=== PATIENT | female | born 1955 | race Caucasian/White ===

== ENCOUNTER 2017-12-29 08:51 | Emergency (ER) | payer OTHER ==
[2017-12-29 08:55] VITALS: BMI 28.6
--- NOTE | 2017-12-29 08:55 | PDOC ---
History of Present Illness - General Chief Complaint: Cold Symptoms Stated Complaint: COUGH Time Seen by Provider: 12/29/17 08:54 History Source: Patient (Patient arrived here complaining of cough, sinus congestion) Exam Limitations: No Limitations - History of Present Illness Timing/Duration: unsure, 24 hours, constant Severity: mild Modifying Factors: improves with: medication Associated Symptoms: reports: denies symptoms Past History - Travel Traveled outside of the country in the last 30 days: No Close contact w/someone who was outside of country & ill: No - Past Medical History Allergies/Adverse Reactions: Allergies Allergy/AdvReac Type Severity Reaction Status Date / Time pineapple Allergy Hives Verified 12/29/17 08:51 Home Medications: Ambulatory Orders Bupropion HCl [Wellbutrin Xl] 300 mg PO DAILY 12/29/17 Cetirizine HCl [Zyrtec -] 10 mg PO DAILY #10 tablet 12/29/17 Guaifenesin [Robitussin] 100 mg PO Q6H #14 ud 12/29/17 Levothyroxine [Synthroid -] 100 mcg PO DAILY 12/29/17 - Reproductive History Is Patient Now?: No - Suicide/Smoking/Psychosocial Hx Smoking Status: Yes Smoking History: Current every day smoker Years of Tobacco Use: 39 Have you smoked in the past 12 months: Yes Number of Cigarettes Smoked Daily: 20 Information on smoking cessation initiated: Yes Drug/Substance Use Hx: No Review of Systems - Review of Systems Able to Perform ROS?: Yes Is the patient limited Green[place]ic proficient: Yes Constitutional: Yes: Symptoms Reported, Fever, Malaise HEENTM: Yes: See HPI, Nose Congestion Respiratory: Yes: Cough Cardiac (ROS): No: Symptoms Reported, See HPI, Chest Pain, Edema, Irregular Heart Rate, Lightheadedness, Palpitations, Syncope, Chest Tightness, Other ABD/GI: No: Symptoms Reported, See HPI, Abdominal Distended, Abd. Pain w/ defecation, Blood Streaked Bowels, Constipated, Diarrhea, Difficulty Swallowing , Nausea, Poor Appetite, Poor Fluid Intake, Rectal Bleeding, Vomiting, Indigestion, Abdominal cramping, Tarry Stools, Other All Other Systems: Reviewed and Negative *Physical Exam - Physical Exam General Appearance: Yes: Nourished, Appropriately Dressed, Mild Distress HEENT: positive: MARY, Pharyngeal Erythema Neck: positive: Supple Respiratory/Chest: positive: Lungs Clear Cardiovascular: positive: Regular Rate Lymphatic: positive: Adenopathy Musculoskeletal: positive: Normal Inspection Extremity: positive: Normal Capillary Refill Integumentary: positive: Normal Color, Dry Neurologic: positive: Fully Oriented, Alert, Normal Mood/Affect Medical Decision Making - Medical Decision Making Throat neg for strep Xrays = negative by me 12/29/17 18:37 *DC/Admit/Observation/Transfer Diagnosis at time of Disposition: Bronchitis, Smoker URI (upper respiratory infection) Qualifiers: URI type: unspecified viral URI Qualified Code(s): J06.9 - Acute upper respiratory infection, unspecified - Discharge Dispostion Disposition: HOME Condition at time of disposition: Stable Decision to Admit order: No - Prescriptions Prescriptions: Cetirizine HCl [Zyrtec -] 10 mg PO DAILY #10 tablet Guaifenesin [Robitussin] 100 mg PO Q6H #14 ud - Referrals Referrals: Sharita Funez MD [Primary Care Provider] - - Patient Instructions Printed Discharge Instructions: DI for Viral Upper Respiratory Infection -- Adult Additional Instructions: Fluids, rest, - Post Discharge Activity Forms/Work/School Notes: Back to Work
[2017-12-29 10:14] VITALS: BP 156/89; PULSE 79
== END 2017-12-29 10:58 | disposition home or self-care (01) ==
LOC: FER 08:51
DX: J20.9 Acute bronchitis, unspecified (principal); J06.9 Acute upper respiratory infection, unspecified; F17.210 Nicotine dependence, cigarettes, uncomplicated
CPT/HCPCS: 71046-TC-FY; 87070; 87430; 99282-25